=== PATIENT | male | born 1955 | race Caucasian/White ===

== ENCOUNTER → 2020-06-20 | Outpatient (CLI) | payer OTHER ==
[~2020-06-20] MED LIST: PERCOCET 325 MG1 TA2 PO; ZIAC 5 MG-6.25 M5 MG PO
== END | disposition home or self-care (01) ==
LOC: US 07:16
PROVIDERS: ATTEND Nurse Practitioner Family
DX: R94.5 Abnormal results of liver function studies (principal)

== ENCOUNTER 2023-06-17 12:22 | Emergency (ER) | payer OTHER ==
[~2023-06-17] VITALS: Ht 185.4 cm; Wt 77.1 kg
[2023-06-17 12:57] LABS: BASO # 0.1 10*3/uL (0.0-0.1); BASO % 0.8 % (0.0-1.0); EOS # 0.1 10*3/uL (0.0-0.4); EOS % 1.2 % (1.0-4.0); LYMPH # 1.7 10*3/uL (1.3-4.4); LYMPH % 15.6 % (27.0-41.0); MEAN CELL VOLUME 87.2 fl (80.0-94.0); MEAN CORPUSCULAR HGB 29.6 pg (27.0-31.0); MEAN PLATELET VOLUME 11.2 fl (9.6-12.3); MONO # 0.8 10*3/uL (0.1-1.0); MONO % 7.7 % (3.0-9.0); NEUT # 7.9 10*3/uL (2.3-7.9); NEUT % 74.3 % (47.0-73.0); PLATELET COUNT AUTOMATED 188 10*3/uL (130-400); RED BLOOD COUNT 4.93 10*6/uL (4.50-5.90); RED CELL DISTRI WIDTH 12.8 % (0-14.5); WHITE BLOOD COUNT 10.7 10*3/uL (4.8-10.8)
[2023-06-17 13:14] LABS: ACT PARTIAL THROMBO TIME 29.2 SECONDS (20.0-32.1)
[2023-06-17 13:28] LABS: ALKALINE PHOSPHATASE 105 U/L (46-116); BUN 13 mg/dl (9-23); CHLORIDE 104 mmol/L (98-107); POTASSIUM 3.9 mmol/L (3.4-5.1); SGPT/ALT 52 U/L (5-49); TOTAL PROTEIN 7.4 gm/dL (6.0-8.0)
[2023-06-17 16:30] VITALS: BP 157/82
== END 2023-06-17 16:44 | disposition home or self-care (01) ==
LOC: ED 12:22
PROVIDERS: Family Medicine
DX: R07.89 Other chest pain (principal); I49.1 Atrial premature depolarization; I10 Essential (primary) hypertension